=== PATIENT | female | born 1995 | race American Indian/Alaskan Native ===

== ENCOUNTER 2017-02-08 21:24 | Outpatient (CLI) | payer MEDICAID ==
[2017-02-08 21:56] VITALS: BP 118/61
[2017-02-08] MEDS ORDERED: LACTATED RINGERS 500 ML IV ONE (22:06)
[2017-02-08 22:20] LABS: Bilirubin,Urine NEG (Negative); Blood,Urine NEG (Negative); Ketones,Urine NEG (Negative); Leukocyte Esterase,Urine TR (Negative); Mucus,Urine FEW /HPF; Nitrite,Urine NEG (Negative); Protein,Urine <15 mg/dL mg/dL (Negative); RBC,Urine < 1.0 /HPF (0.0-6.0); Urobilinogen,Urine < 2.0 mg/dL (<2.0)
[2017-02-08] MEDS ORDERED: LACTATED RINGERS 1,000 ML IV ONE (23:04)
== END 2017-02-09 00:30 | disposition home or self-care (01) ==
LOC: TRG 21:24
PROVIDERS: ATTEND Obstetrics & Gynecology
DX: O47.02 False labor before 37 completed weeks of gestation, second trimester (principal); Z3A.24 24 weeks gestation of pregnancy
CPT/HCPCS: 59025; 81001; 96360; J7120

== ENCOUNTER 2017-02-15 00:53 | Emergency (ER) | payer MEDICAID ==
[2017-02-15 03:09] VITALS: BP 105/66
== END 2017-02-15 07:42 | disposition left against medical advice (07) ==
LOC: ED 00:53
DX: O26.892 Other specified pregnancy related conditions, second trimester (principal); Z3A.24 24 weeks gestation of pregnancy; M79.631 Pain in right forearm; Z53.21 Procedure and treatment not carried out due to patient leaving prior to being seen by health care provider

== ENCOUNTER 2017-03-06 07:53 | Outpatient (CLI) | payer MEDICAID ==
[2017-03-06 08:40] VITALS: BP 117/69
[2017-03-06 08:51] LABS: Bilirubin,Urine NEG (Negative); Blood,Urine NEG (Negative); Ketones,Urine NEG (Negative); Leukocyte Esterase,Urine TR (Negative); Mucus,Urine FEW /HPF; Nitrite,Urine NEG (Negative); Protein,Urine <15 mg/dL mg/dL (Negative); Urobilinogen,Urine < 2.0 mg/dL (<2.0); WBC,Urine < 1.0 /HPF (0.0-6.0)
== END 2017-03-06 09:05 | disposition home or self-care (01) ==
LOC: TRG 07:53
PROVIDERS: ATTEND Obstetrics & Gynecology
DX: O47.03 False labor before 37 completed weeks of gestation, third trimester (principal); Z3A.28 28 weeks gestation of pregnancy
CPT/HCPCS: 59025; 81001

== ENCOUNTER 2017-03-21 14:49 | Outpatient (CLI) | payer MEDICAID ==
[2017-03-21 15:11] VITALS: BP 110/56
[2017-03-21] MEDS ORDERED: LACTATED RINGERS 500 ML IV ONE (16:00)
[2017-03-21 16:04] LABS: Bilirubin,Urine NEG (Negative); Blood,Urine NEG (Negative); Color,Urine Yellow (Yellow); Mucus,Urine FEW /HPF; Nitrite,Urine NEG (Negative); Protein,Urine <15 mg/dL mg/dL (Negative); Urobilinogen,Urine < 2.0 mg/dL (<2.0)
== END 2017-03-21 16:25 | disposition home or self-care (01) ==
LOC: TRG 14:49
PROVIDERS: ATTEND Obstetrics & Gynecology
DX: O47.03 False labor before 37 completed weeks of gestation, third trimester (principal); Z3A.30 30 weeks gestation of pregnancy
CPT/HCPCS: 59025; 81001

== ENCOUNTER 2017-05-11 21:17 | Outpatient (CLI) | payer MEDICAID ==
[2017-05-11 21:34] VITALS: BP 113/62
== END 2017-05-11 22:19 | disposition home or self-care (01) ==
LOC: TRG 21:17
PROVIDERS: ATTEND Obstetrics & Gynecology
DX: O36.8130 Decreased fetal movements, third trimester, not applicable or unspecified (principal); O26.893 Other specified pregnancy related conditions, third trimester; R10.9 Unspecified abdominal pain; Z3A.38 38 weeks gestation of pregnancy
CPT/HCPCS: 59025

== ENCOUNTER 2017-05-16 21:36 | Outpatient (CLI) | payer MEDICAID ==
[2017-05-18 12:12] VITALS: BP 118/60
== END 2017-05-16 22:37 | disposition home or self-care (01) ==
LOC: TRG 21:36
PROVIDERS: ATTEND Obstetrics & Gynecology Gynecology
DX: O62.9 Abnormality of forces of labor, unspecified (principal); Z3A.39 39 weeks gestation of pregnancy
CPT/HCPCS: 59025

== ENCOUNTER 2017-05-18 21:21 | Outpatient (CLI) | payer MEDICAID ==
[2017-05-18 21:36] VITALS: BP 118/69
== END 2017-05-18 22:15 | disposition home or self-care (01) ==
LOC: TRG 21:21
PROVIDERS: ATTEND Obstetrics & Gynecology
DX: O47.1 False labor at or after 37 completed weeks of gestation (principal); Z3A.38 38 weeks gestation of pregnancy
CPT/HCPCS: 59025

== ENCOUNTER 2017-05-24 07:13 | Inpatient (IN) | payer MEDICAID ==
[2017-05-24 08:21] LABS: Bilirubin,Urine NEG (Negative); Blood,Urine MOD (Negative); Color,Urine Yellow (Yellow); Mucus,Urine FEW /HPF; Protein,Urine <15 mg/dL mg/dL (Negative); Urobilinogen,Urine < 2.0 mg/dL (<2.0)
[2017-05-24 08:27] LABS: Amphetamine Screen,Urine PRESUMPTIVE NEGATIVE; Benzodiazepines Screen,Urine PRESUMPTIVE NEGATIVE; Cannabinoid Screen,Urine PRESUMPTIVE NEGATIVE; Cocaine Screen,Urine PRESUMPTIVE NEGATIVE; Methadone Screen,Urine PRESUMPTIVE NEGATIVE; Opiate Screen,Urine PRESUMPTIVE NEGATIVE
[2017-05-24] MEDS ORDERED: BRETHINE SUB-Q PRN (10:00)
[2017-05-24] MEDS ORDERED: NORMOSOL-R PH 7.4 1,000 ML IV SCH (10:00)
[2017-05-24] MEDS ORDERED: SUBLIMAZE IV PRN (10:00)
[2017-05-24] MEDS ORDERED: BRETHINE IVP PRN (10:00)
[2017-05-24] MEDS ORDERED: PITOCin/NS 20 UNIT/1000ML DRIP 20 UNITS/1,000 ML BAG IV SCH (10:00)
[2017-05-24] MEDS ORDERED: MINERAL OIL PO PRN (10:00)
[2017-05-24] MEDS ORDERED: POLYCILLIN/NS 2 GM/100 ML 2 GM/100 ML BAG IV ONE (10:00)
[2017-05-24] MEDS ORDERED: XYLOCAINE 2% INFILTRATI ONE (10:00)
[2017-05-24] MEDS ORDERED: ePHEDrine SULFATE IV PRN (10:00)
[2017-05-24 10:58] LABS: Hematocrit 35.3 % (30.3-42.9); Hemoglobin 11.4 gm/dl (10.1-14.3); Mean Corpuscular HGB Conc 33 % (30-34); Mean Corpuscular Hemoglobin 28 pg (28-32); Mean Corpuscular Volume 85 fl (79-97); Platelet Count 228 K/mm3 (140-440); Red Blood Count 4.15 M/mm3 (3.65-5.03); Red Cell Distribution Width 14.1 % (13.2-15.2)
[2017-05-24] MEDS ORDERED: PITOCin/NS 30 UNIT/500ML 30,000 MILLIUNITS/500 ML BAG IV ONE (13:12)
[2017-05-24] MEDS ORDERED: XYLOCAINE MPF 2% ONE (13:42)
[2017-05-24] MEDS ORDERED: AMPICILLIN/NS 1 GM/50 ML 1 GM/50 ML BAG ONE (13:42)
--- NOTE | 2017-05-24 14:58 | Anesthesia Consultation ---
Anesthesia Consult and Med Hx Date of service: 05/24/17 - Airway Anesthetic Teeth Evaluation: Good ROM Head & Neck: Adequate Mental/Hyoid Distance: Adequate Mallampati Class: Class II Intubation Access Assessment: Probably Good - Pre-Operative Health Status ASA Pre-Surgery Classification: ASA2 Proposed Anesthetic Plan: Epidural, Spinal - Pulmonary Hx Asthma: No COPD: No Hx Pneumonia: No - Cardiovascular System Hx Hypertension: No - Central Nervous System Hx Seizures: No Hx Psychiatric Problems: No - Endocrine Hx Renal Disease: No Hx End Stage Renal Disease: No Hx Hypothyroidism: No Hx Hyperthyroidism: No - Hematic Hx Anemia: No Hx Sickle Cell Disease: No - Other Systems Hx Alcohol Use: No
[2017-05-24] MEDS ORDERED: STADOL ONE (16:14)
[2017-05-24] MEDS ORDERED: ZOFRAN IV PRN (17:08)
[2017-05-24] MEDS ORDERED: BENADRYL PO PRN (17:08)
[2017-05-24] MEDS ORDERED: TUCKS PAD TP PRN (17:08)
[2017-05-24] MEDS ORDERED: PHENERGAN PO PRN (17:08)
[2017-05-24] MEDS ORDERED: DULCOLAX PR PRN (17:08)
[2017-05-24] MEDS ORDERED: PHENERGAN PR PRN (17:08)
[2017-05-24] MEDS ORDERED: STADOL IV ONE (17:17)
--- NOTE | 2017-05-24 17:22 | Procedure Note ---
OB Delivery Note - Delivery Date of Delivery: 05/24/17 (1547) Surgeon: SPENCER LISA Estimated blood loss: other (400) - Vaginal Delivery presentation: vertex Delivery position: OA Intrapartum events: meconium Delivery induction: none Delivery augmentation: rupture of membranes, pitocin Delivery monitor: external FHT, internal uterine Route of delivery: Delivery placenta: spontaneous Delivery cord: 3 umbilical vessels Delivery laceration: 2nd degree Delivery repair: vicryl Anesthesia: epidural Delivery comments: of a live 6'9 female infant over 2nd degree perineal and 2nd degree left vaginal wall lacerations with Apgars of 8 and 9 at 1547 on 05/24/2017. Cord double clamped and cut by CYNTHIA Lisa, and passed directly to awaiting NICU/RESP team due to meconium stained fluids. Spontaneous delivery of placenta complete and intact with [place] side presenting at 1550. Fundus is firm and midline located 4 below the U. Lochia is scant. Vaginal lacerations repaired with 2-[address]-1 X 3 under local 2% Lidocaine. Cord blood collected; Placenta discarded. GBS Prophylaxis X 2. - A at 1 minute: 8 at 5 minutes: 9 Gender: Female
[2017-05-24] MEDS ORDERED: AMMONIA INHALANT IH ONE (17:35)
[2017-05-24] MEDS ORDERED: SODIUM CHLORIDE FLUSH SYRINGE 10 ML IV SCH (18:00)
[2017-05-24] MEDS: MOTRIN PO SCH (21:07)
[2017-05-24] MEDS: FEOSOL PO SCH (21:07)
[2017-05-25] MEDS: MOTRIN PO SCH ×4 (00:17→18:23)
[2017-05-25 05:59] LABS: Hematocrit 21.3 % (30.3-42.9); Hemoglobin 7.1 gm/dl (10.1-14.3)
[2017-05-25] MEDS: PRENATAL VITAMIN PO SCH (10:07)
[2017-05-25] MEDS: FEOSOL PO SCH ×3 (10:07→21:20)
--- NOTE | 2017-05-25 10:16 | Progress Note ---
<YURI SAHU - Last Filed: 05/25/17 10:12> Assessment and Plan A: day 1, Stable Severe anemia, H&H 7.1 & 21.3 P: H&H redrawn at 1000, continue iron Plan discharge tomorrow Subjective - Subjective Date of service: 05/25/17 Principal diagnosis: spontaneous labor Interval history: Patient reports: appetite normal, voiding normally, dizzy ambulation (only with prolonged standing), pain well controlled, bowel movement, ambulating normally : doing well, nursing well Objective - Vital Signs Latest vital signs: Vital Signs Temp Pulse Resp BP BP Pulse Ox 05/25/17 08:19 98.8 F 97 H 20 105/58 98 05/25/17 04:00 98.6 F 91 H 16 117/69 05/25/17 00:00 98.6 F 108 H 16 123/54 05/24/17 21:29 99.4 F 108 H 16 115/73 05/24/17 17:50 98.9 F 85 18 88/50 05/24/17 17:26 108 H 106/66 05/24/17 17:11 88 110/59 05/24/17 16:56 94 H 102/58 05/24/17 16:41 88 111/59 05/24/17 16:26 92 H 107/58 05/24/17 16:11 122 H 131/69 05/24/17 15:56 110 H 129/64 05/24/17 15:26 97 H 127/57 05/24/17 15:02 107 H 99 05/24/17 14:57 101 H 100 05/24/17 14:54 98.7 F 16 05/24/17 14:52 99 05/24/17 14:47 95 H 99 05/24/17 14:42 75 99 05/24/17 14:37 78 99 05/24/17 14:33 70 L 05/24/17 14:32 100 H 99 05/24/17 14:29 85 101/55 05/24/17 14:27 79 97 05/24/17 14:22 91 H 98 05/24/17 13:53 87 117/69 97 05/24/17 13:48 87 100 05/24/17 13:43 82 98 05/24/17 13:38 81 98 03/15/18 13:33 93 H 99 03/15/18 13:28 77 99 03/15/18 13:23 77 98 03/15/18 13:18 87 99 03/15/18 13:13 75 99 03/15/18 13:09 80 115/65 03/15/18 13:08 84 98 03/15/18 13:03 83 99 03/15/18 12:58 103 H 98 03/15/18 12:53 89 99 03/15/18 12:48 92 H 98 03/15/18 12:43 109 H 99 03/15/18 12:38 97 H 99 03/15/18 12:33 106 H 98 03/15/18 12:28 101 H 98 03/15/18 12:23 103 H 98 03/15/18 12:20 96 H 98/45 03/15/18 12:17 92 H 98 03/15/18 12:13 80 91/55 98 03/15/18 12:08 95 H 112/52 98 03/15/18 12:04 86 93 03/15/18 12:03 83 100 03/15/18 12:00 79 107/56 03/15/18 11:58 81 100 03/15/18 11:56 96 H 122/60 03/15/18 11:53 89 100 03/15/18 11:52 89 122/68 03/15/18 11:43 72 97 03/15/18 11:38 85 96 03/15/18 11:36 67 89 03/15/18 11:33 68 96 03/15/18 11:28 91 H 96 03/15/18 11:26 91 H 91 03/15/18 11:23 68 96 03/15/18 11:18 69 96 03/15/18 11:13 66 96 03/15/18 11:08 68 96 03/15/18 11:03 63 93 03/15/18 11:02 82 93 03/15/18 10:58 64 96 03/15/18 10:53 77 96 03/15/18 10:48 94 H 97 03/15/18 10:43 74 96 03/15/18 10:38 78 97 03/15/18 10:33 79 97 03/15/18 10:28 73 123/74 98 Intake and Output 03/15/18 03/16/18 03/16/18 23:59 07:59 15:59 Output Total 150 Balance -150 Output: Urine 150 Void 150 Other: Total, Output Amount 150 Estimated Blood Loss 400 - Exam Breasts: Present: normal Cardiovascular: Present: Regular rate Lungs: Present: Clear to auscultation Abdomen: Present: normal appearance, soft, normal bowel sounds Vulva: both: normal Uterus: Present: normal, firm, fundal height below umbilicus Extremities: Present: normal Deep Tendon Reflex Grade: Normal +2 - Labs Labs: Abnormal lab results 05/24/17 05/25/17 Range/Units 09:25 05:39 WBC 13.0 H (4.5-11.0) K/mm3 Hgb 7.1 L D (10.1-14.3) gm/dl Hct 21.3 L D (30.3-42.9) % <LUKE HAWKINS - Last Filed: 05/25/17 18:57> Assessment and Plan - Patient Problems (1) Acute blood loss anemia Current Visit: Yes Status: Acute Objective - Vital Signs Latest vital signs: Vital Signs Temp Pulse Resp BP BP Pulse Ox 05/25/17 16:50 92 H 18 114/58 05/25/17 16:06 98.7 F 93 H 20 112/39 98 05/25/17 11:43 99.0 F 110 H 20 107/40 96 05/25/17 08:19 98.8 F 97 H 20 105/58 98 05/25/17 04:00 98.6 F 91 H 16 117/69 05/25/17 00:00 98.6 F 108 H 16 123/54 05/24/17 21:29 99.4 F 108 H 16 115/73 Intake and Output 05/25/17 05/25/17 05/25/17 06:59 14:59 22:59 Intake Total 360 120 Balance 360 120 Intake: Oral 360 120 Other: Total, Intake Amount 240 120 # Voids Void 1 1 - Labs Labs: Abnormal lab results 05/24/17 05/25/17 05/25/17 Range/Units 09:25 05:39 11:04 Hgb 7.1 L D 7.6 L (10.1-14.3) gm/dl Hct 21.3 L D 22.8 L (30.3-42.9) % Crossmatch See Detail
--- NOTE | 2017-05-25 10:22 | Discharge Summary ---
Providers - Providers Date of Admission: 05/24/17 07:14 Date of discharge: 05/26/17 Attending physician: UNA CAMARILLO MD Primary care physician: UNA CAMARILLO MD Hospitalization Reason for admission: active labor, IUP at term Delivery: Episiotomy: none Laceration: 2nd degree (perineal and L vaginal wall, repaired) Other procedures: none complications: none Discharge diagnosis: IUP at term delivered baby: female Condition at discharge: Good Disposition: DC-01 TO HOME OR SELFCARE Plan - Provider Discharge Summary Activity: routine, no sex for 6 weeks, no heavy lifting 4 weeks, no strenuous exercise Diet: routine Instructions: routine Additional instructions: [] Smoking cessation referral if applicable(refer to patient education folder for contact #) [] Refer to [facility] Booklet Call your doctor immediately for: * Fever > 100.5 * Heavy vaginal bleeding ( >1 pad per hour) * Severe persistent headache * Shortness of breath * Reddened, hot, painful area to leg or breast * Drainage or odor from incision. * Keep incision clean and dry at all times and follow doctor's instructions regarding bathing/showering - Follow up plan Follow up: UNA CAMARILLO MD [Primary Care Provider] - 6 Weeks (Patient of [facility], plan visit with them.)
[2017-05-25 11:30] LABS: Hematocrit 22.8 % (30.3-42.9); Hemoglobin 7.6 gm/dl (10.1-14.3)
[2017-05-25] MEDS ORDERED: INFED IM ONE (13:00)
[2017-05-25] MEDS ORDERED: NACL 0.9% 500 ML 500 ML IV ONE ×2 (18:26→21:00)
[2017-05-25] MEDS ORDERED: TYLENOL PO ONE (18:27)
[2017-05-25] MEDS ORDERED: BENADRYL IV ONE (18:27)
--- NOTE | 2017-05-25 18:30 | Event Note ---
Date: 05/25/17 S: Called by nurse that pt complained of dizziness upon standing. O: Orthostatic BP's and Pulse noted - 114/62 P 98 Lying 116/74 P 106 Sitting 117/74 P 118 Standing Admission H/H - 11.4/35.3 Post delivery H/H - 7.1/21.1 and repeat 7.6/22.8 A: Symptomatic anemia P: Will transfuse 1 unit of PRBC's Obtain Post transfusion H/H
[2017-05-25] MEDS: NORCO 5/325 PO PRN (21:19)
[2017-05-26] MEDS: MOTRIN PO SCH ×2 (00:10→12:09)
[2017-05-26 04:21] LABS: Hematocrit 23.7 % (30.3-42.9); Hemoglobin 7.8 gm/dl (10.1-14.3)
[2017-05-26] MEDS: FEOSOL PO SCH ×2 (08:23→13:35)
[2017-05-26] MEDS: PRENATAL VITAMIN PO SCH (09:14)
[2017-05-26] MEDS: NORCO 5/325 PO PRN (09:59)
[2017-05-26] MEDS ORDERED: D5LR 1,000 ML IV ONE (10:57)
[2017-05-26] MEDS ORDERED: D5LR 1,000 ML IV SCH (11:00)
[2017-05-26 17:54] VITALS: BP 114/66
== END 2017-05-26 19:30 | disposition home or self-care (01) | DRG 775 ==
LOC: TRG 07:13 → LD 07:14 → TRG 07:14 → OB 18:50
PROVIDERS: ADMIT Obstetrics & Gynecology; ATTEND Obstetrics & Gynecology
PROC: 10E0XZZ Delivery of Products of Conception, External Approach (ICD-10-PCS; principal; 2017-05-24)
PROC: 0KQM0ZZ Repair Perineum Muscle, Open Approach (ICD-10-PCS; 2017-05-24)
PROC: 3E0R3BZ Introduction of Anesthetic Agent into Spinal Canal, Percutaneous Approach (ICD-10-PCS; 2017-05-24)
PROC: 00HU33Z Insertion of Infusion Device into Spinal Canal, Percutaneous Approach (ICD-10-PCS; 2017-05-24)
PROC: 30233N1 Transfusion of Nonautologous Red Blood Cells into Peripheral Vein, Percutaneous Approach (ICD-10-PCS; 2017-05-25)
DX: O77.0 Labor and delivery complicated by meconium in amniotic fluid (principal); Z37.0 Single live birth; O70.1 Second degree perineal laceration during delivery; O90.81 Anemia of the puerperium; D62 Acute posthemorrhagic anemia; Z3A.39 39 weeks gestation of pregnancy
CPT/HCPCS: 36415; 80307; 81001; 85014; 85018; 85027; 86592; 86850; 86900; 86901; 86920; 99211; G0463; J0290; J0595; J1750; J2590; J3010; J7040; J7121; P9016

== ENCOUNTER 2019-01-16 08:27 | Emergency (ER) | payer OTHER ==
[2019-01-16 08:32] VITALS: BP 120/76
--- NOTE | 2019-01-16 09:15 | XRay Report ---
RIGHT HAND, 3 VIEWS INDICATION: Trauma, pain. COMPARISON: None. IMPRESSION: No acute osseous or soft tissue abnormality. No significant DJD. Signer Name: Luis Enrique De Guzman Jr, MD Signed: 01/16/2019 9:11 AM Workstation Name: [id number]
--- NOTE | 2019-01-16 09:25 | Emergency Department Report ---
ED Upper Extremity Inj HPI - General Chief Complaint: Extremity Problem,Nontraumatic Stated Complaint: RT HAND PAIN Time Seen by Provider: 01/16/19 08:52 Source: patient Mode of arrival: Ambulatory Limitations: No Limitations - History of Present Illness Initial Comments: Patient is 23 years old female with no significant past medical history. Patient stated that she hurt her right hand yesterday after she punched a wall after she get angry somebody. Patient denied any other injuries. Patient denied any suicidal or homicidal ideation. No other complaint. MD Complaint: Injury to:: right, hand - Related Data Home Medications Medication Instructions Recorded Confirmed Last Taken Vit-Fe Fumar-FA [ 1 tab PO QDAY 03/06/17 03/06/17 03/05/17 09:00 Vitamin] 1 Previous Rx's Medication Instructions Recorded Last Taken Type Ferrous Sulfate [Feosol 325 MG tab] 325 mg PO BID #60 tablet 05/26/17 Unknown Rx Ibuprofen [Motrin] 600 mg PO Q6H PRN #30 tablet 05/26/17 Unknown Rx Vit Calc,Iron,Folic 1 each PO DAILY #30 tablet 05/26/17 Unknown Rx [ Vitamins] Acetaminophen [Tylenol] 650 mg PO QID PRN #60 capsule 12/21/17 Unknown Rx Menthol/Camphor [[place] 1 applicatio TP TID PRN #1 tube 12/21/17 Unknown Rx Ointment] Allergies Allergy/AdvReac Type Severity Reaction Status Date / Time No Known Allergies Allergy Verified 03/06/17 08:22 ED Review of Systems ROS: Stated complaint: RT HAND PAIN Other details as noted in HPI Comment: All other systems reviewed and negative Constitutional: denies: chills, fever Cardiovascular: denies: chest pain Gastrointestinal: denies: abdominal pain Musculoskeletal: denies: back pain ED Past Medical Hx - Past Medical History Previous Medical History?: No Hx Hypertension: No Hx Congestive Heart Failure: No Hx Diabetes: No Hx Deep Vein Thrombosis: No Hx Renal Disease: No Hx Sickle Cell Disease: No Hx Seizures: No Hx Asthma: No Hx COPD: No Hx HIV: No - Surgical History Past Surgical History?: No - Social History Smoking Status: Never Smoker - Medications Home Medications: Home Medications Medication Instructions Recorded Confirmed Last Taken Type Vit-Fe Fumar-FA [ 1 tab PO QDAY 1203/06/17 03/05/17 09:00 History Vitamin] 1 Ferrous Sulfate [Feosol 325 MG tab] 325 mg PO BID #60 tablet 05/26/17 Unknown Rx Ibuprofen [Motrin] 600 mg PO Q6H PRN #30 tablet 05/26/17 Unknown Rx Vit Calc,Iron,Folic 1 each PO DAILY #30 tablet 05/26/17 Unknown Rx [ Vitamins] Acetaminophen [Tylenol] 650 mg PO QID PRN #60 capsule 12/21/17 Unknown Rx Menthol/Camphor [[place] 1 applicatio TP TID PRN #1 tube 12/21/17 Unknown Rx Ointment] ED Physical Exam - General Limitations: No Limitations General appearance: alert, in no apparent distress - Head Head exam: Present: atraumatic - ENT ENT exam: Present: normal exam - Neck Neck exam: Absent: tenderness - Respiratory Respiratory exam: Present: normal lung sounds bilaterally. Absent: chest wall tenderness - Cardiovascular Cardiovascular Exam: Present: normal heart sounds - GI/Abdominal GI/Abdominal exam: Present: soft. Absent: distended, tenderness - Expanded Upper Extremity Exam Right Hand Wrist exam: Present: normal inspection, full ROM, tenderness. Absent: swelling, abrasion, laceration, ecchymosis, deformity, crepidus, dislocation ED Course Vital Signs 01/16/19 08:32 Temperature 98.5 F Pulse Rate 66 Respiratory 18 Rate Blood Pressure 120/76 [Right] O2 Sat by Pulse 97 Oximetry ED Medical Decision Making - Radiology Data Radiology results: report reviewed Right hand x-ray is negative for acute finding. Critical care attestation.: If time is entered above; I have spent that time in minutes in the direct care of this critically ill patient, excluding procedure time. ED Disposition Clinical Impression: Contusion of right hand Disposition: DC-01 TO HOME OR SELFCARE Is pt being admited?: No Condition: Stable Instructions: Contusion in Adults (ED) Referrals: PRIMARY CARE, [Primary Care Provider] - 3-5 Days
== END 2019-01-16 09:35 | disposition home or self-care (01) ==
LOC: ED 08:27
DX: S60.221A Contusion of right hand, initial encounter (principal); Z79.899 Other long term (current) drug therapy; W22.01XA Walked into wall, initial encounter; Y93.89 Activity, other specified; Y92.89 Other specified places as the place of occurrence of the external cause; Y99.8 Other external cause status

== ENCOUNTER 2019-09-20 16:15 | Emergency (ER) | payer SELFPAY ==
[2019-09-20 16:28] VITALS: BP 121/58
--- NOTE | 2019-09-20 17:46 | Emergency Department Report ---
ED Lower Extremity HPI - General Chief Complaint: Extremity Injury, Lower Stated Complaint: LEFT FOOT PAIN Source: patient Mode of arrival: Ambulatory Limitations: No Limitations - History of Present Illness Initial Comments: Patient is a 23-year-old -[place] female who presents with left foot pain and swelling since yesterday. 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 states unable to bear weight now, there is no abrasion , laceration, or bleeding. MD Complaint: foot injury Onset/Timin -: days(s) Injury: Foot: Left Type of Injury: unknown Place: work Severity: moderate Severity scale (0 -10): 5 Improves With: rest Worsens With: weight bearing, movement, palpation Context: walking Associated Symptoms: snap/pop sensation, swelling, tingling, able to partially bear weight. denies: numbness - Related Data Home Medications Medication Instructions Recorded Confirmed Last Taken Vit-Fe Fumar-FA [ 1 tab PO QDAY 03/06/17 03/06/17 03/05/17 09:00 Vitamin] 1 Previous Rx's Medication Instructions Recorded Last Taken Type Ferrous Sulfate [Feosol 325 MG tab] 325 mg PO BID #60 tablet 05/26/17 Unknown Rx Ibuprofen [Motrin] 600 mg PO Q6H PRN #30 tablet 05/26/17 Unknown Rx Vit Calc,Iron,Folic 1 each PO DAILY #30 tablet 05/26/17 Unknown Rx [ Vitamins] Acetaminophen [Tylenol] 650 mg PO QID PRN #60 capsule 12/21/17 Unknown Rx Menthol/Camphor [[place] 1 applicatio TP TID PRN #1 tube 12/21/17 Unknown Rx Ointment] Naproxen [Naprosyn] 500 mg PO BID #14 tablet 01/16/19 Unknown Rx Pnv,Calcium 72/Iron/Folic Acid 1 each PO QDAY #90 tablet 07/16/19 Unknown Rx [ Plus Tablet] Allergies Allergy/AdvReac Type Severity Reaction Status Date / Time No Known Allergies Allergy Verified 03/06/17 08:22 ED Review of Systems ROS: Stated complaint: LEFT FOOT PAIN Other details as noted in HPI Constitutional: denies: chills, fever Eyes: denies: eye pain, eye discharge, vision change ENT: denies: ear pain, throat pain Respiratory: denies: cough, shortness of breath, wheezing Cardiovascular: denies: chest pain, palpitations Endocrine: no symptoms reported Gastrointestinal: denies: abdominal pain, nausea, diarrhea Genitourinary: denies: urgency, dysuria, discharge Musculoskeletal: other (left foot pain) Skin: denies: rash, lesions Neurological: denies: headache, weakness, paresthesias Psychiatric: denies: anxiety, depression Hematological/Lymphatic: denies: easy bleeding, easy bruising ED Past Medical Hx - Past Medical History Previous Medical History?: No Hx Hypertension: No Hx Congestive Heart Failure: No Hx Diabetes: No Hx Deep Vein Thrombosis: No Hx Renal Disease: No Hx Sickle Cell Disease: No Hx Seizures: No Hx Asthma: No Hx COPD: No Hx HIV: No - Surgical History Past Surgical History?: No - Social History Smoking Status: Never Smoker Substance Use Type: Alcohol - Medications Home Medications: Home Medications Medication Instructions Recorded Confirmed Last Taken Type Vit-Fe Fumar-FA [ 1 tab PO QDAY 03/06/17 03/06/17 03/05/17 09:00 History Vitamin] 1 Ferrous Sulfate [Feosol 325 MG tab] 325 mg PO BID #60 tablet 05/26/17 Unknown Rx Ibuprofen [Motrin] 600 mg PO Q6H PRN #30 tablet 05/26/17 Unknown Rx Vit Calc,Iron,Folic 1 each PO DAILY #30 tablet 05/26/17 Unknown Rx [ Vitamins] Acetaminophen [Tylenol] 650 mg PO QID PRN #60 capsule 12/21/17 Unknown Rx Menthol/Camphor [[place] 1 applicatio TP TID PRN #1 tube 12/21/17 Unknown Rx Ointment] Naproxen [Naprosyn] 500 mg PO BID #14 tablet 01/16/19 Unknown Rx Pnv,Calcium 72/Iron/Folic Acid 1 each PO QDAY #90 tablet 07/16/19 Unknown Rx [ Plus Tablet] ED Physical Exam - General Limitations: No Limitations General appearance: alert, in no apparent distress - Head Head exam: Present: atraumatic, normocephalic - Eye Eye exam: Present: normal appearance, PERRL, EOMI Pupils: Present: normal accommodation - ENT ENT exam: Present: mucous membranes moist - Neck Neck exam: Present: normal inspection - Respiratory Respiratory exam: Present: normal lung sounds bilaterally. Absent: respiratory distress, wheezes - Cardiovascular Cardiovascular Exam: Present: regular rate, normal rhythm, normal heart sounds. Absent: systolic murmur, diastolic murmur, rubs, gallop - GI/Abdominal GI/Abdominal exam: Present: soft, normal bowel sounds. Absent: distended, tenderness, guarding, rebound, rigid, bruit, hernia - Rectal Rectal exam: Present: deferred - Extremities Exam Extremities exam: Present: tenderness, normal capillary refill - Expanded Lower Extremity Exam Left Foot/Toe exam: Present: full ROM, tenderness, swelling. Absent: abrasion, laceration, ecchymosis, deformity, crepidus, dislocation, erythema Neuro vascular tendon exam: Absent: pulse deficit, motor deficit, sensory deficit, tendon deficit Gait: Positive: observed and limited by pain - Back Exam Back exam: Present: normal inspection, full ROM. Absent: CVA tenderness (R), CVA tenderness (L), vertebral tenderness - Neurological Exam Neurological exam: Present: alert, oriented X3, CN II-XII intact, reflexes normal. Absent: motor sensory deficit - Psychiatric Psychiatric exam: Present: normal affect, normal mood - Skin Skin exam: Present: warm, dry, intact, normal color. Absent: rash ED Course Vital Signs 09/20/19 16:26 Temperature 98.2 F Pulse Rate 86 Respiratory 17 Rate Blood Pressure 121/58 O2 Sat by Pulse 100 Oximetry ED Lower Extremity MDM - Radiology Data Radiology results: report reviewed, image reviewed X-ray no fracture no soft tissue abnormality. - Medical Decision Making X-ray no fracture no soft tissue abnormality. pt states pain is improved, Diagnosis foot sprain. Patient declines Erik wrap. However recommend rice and NSAIDs elevation rest with exercises. Patient verbalizes agreement and understanding of discharge plan. Patient will be DC'd home in stable condition at this time. Patient given in follow-up to podiatry. Critical care attestation.: If time is entered above; I have spent that time in minutes in the direct care of this critically ill patient, excluding procedure time. ED Disposition Clinical Impression: Sprain of foot, left Qualifiers: Encounter type: initial encounter Qualified Code(s): S93.602A - Unspecified sprain of left foot, initial encounter Disposition: DC-01 TO HOME OR SELFCARE Is pt being admited?: No Does the pt Need Aspirin: No Condition: Stable Instructions: Foot Sprain (ED) Referrals: BLOSSOM GARCIA DPM [Staff Physician] - 3-5 Days Forms: Work/School Release Form(ED) Time of Disposition: 18:43
--- NOTE | 2019-09-20 18:10 | XRay Report ---
LEFT FOOT, 3 VIEWS INDICATION / CLINICAL INFORMATION: foot pain x 1 day. COMPARISON: None available. FINDINGS: No osseous or soft tissue abnormality is identified. IMPRESSION: Negative exam. Signer Name: Patti Zheng MD Signed: 09/20/2019 6:06 PM Workstation Name: [id number]
== END 2019-09-20 18:55 | disposition home or self-care (01) ==
LOC: ED 16:15
DX: S93.602A Unspecified sprain of left foot, initial encounter (principal); X58.XXXA Exposure to other specified factors, initial encounter; Y93.89 Activity, other specified; Y92.89 Other specified places as the place of occurrence of the external cause; Y99.8 Other external cause status
CPT/HCPCS: 99283